=== PATIENT | male | born 1985 | race Caucasian/White ===

== ENCOUNTER 2017-11-08 16:32 | Emergency (ER) | payer BC ==
[2017-11-08 16:48] VITALS: TEMP 99.1; BMI 22.9
[2017-11-08] MEDS ORDERED: KETOROLAC TROMETHAMINE 30 MG/1 ML VIAL IVPUSH ONE (16:49)
[2017-11-08] MEDS ORDERED: SODIUM CHLORIDE 0.9% 1000 ML INFUS.BAG IV ONE (16:49)
[2017-11-08] MEDS ORDERED: KETOROLAC TROMETHAMINE 30 MG/1 ML VIAL ONE (16:56)
--- NOTE | 2017-11-08 16:56 | PDOC ---
History of Present Illness - General Chief Complaint: Pain Stated Complaint: PAIN Time Seen by Provider: 11/08/17 16:35 - History of Present Illness Initial Comments: 11/08/17 16:52 32 years old significant past medical history on Suboxone presents ED with sudden onset left flank left lower quadrant pain. Symptoms are moderate to severe sharp stabbing persistent constant patient cannot get comfortable associated with mild nausea No fever no chills no chest pain or shortness of breath Past History - Past Medical History Allergies/Adverse Reactions: Allergies Allergy/AdvReac Type Severity Reaction Status Date / Time Penicillins Allergy Verified 11/08/17 16:45 Sulfa (Sulfonamide Allergy Verified 11/08/17 16:45 Antibiotics) Home Medications: Ambulatory Orders No Home Medications 0 dose .ROUTE UTDICT 07/10/12 Anemia: No Asthma: No Cancer: No COPD: No - Surgical History Abdominal Surgery: No Appendectomy: No Cardiac Surgery: No - Suicide/Smoking/Psychosocial Hx Smoking Status: Yes Smoking History: Never smoked Have you smoked in the past 12 months: Yes Number of Cigarettes Smoked Daily: 20 Information on smoking cessation initiated: No 'Breaking Loose' booklet given: 09/08/15 Hx Alcohol Use: No Drug/Substance Use Hx: No Substance Use Type: None Review of Systems - Review of Systems Comments:: 11/08/17 16:52 ROS: A complete review of 10 out of 10 review of systems is taken and is negative apart from what is previously mentioned below and in the HPI. *Physical Exam - Vital Signs Last Vital Signs Temp Pulse Resp BP Pulse Ox 99.1 F 65 16 175/95 100 11/08/17 16:39 11/08/17 16:39 11/08/17 16:39 11/08/17 16:39 11/08/17 16:39 - Physical Exam Comments: 11/08/17 16:52 Vitals: Triage Vital signs reviewed General Appearance: moderate distress, well nourished well developed, Cardiac: Regular rate and rhythym, no murmurs, no rubs, no gallops, Lungs: Clear to auscultation bilateral, good air movement bilaterally, Abdomen: Soft, non distended, normal bowel sounds, left lower quadrant tenderness to palpation MSK: Left CVA TTP Genitourinary: No testicular TTP, no mass, no evidence of torsion Rectal: Exam deferred Extremities: Full range of motion to all extremities, no cyanosis, clubbing, or edema Skin: Warm and dry, no rashes or lesions, no rash, no petechiae Psych: normal mood, normal affect 11/08/17 16:56 ED Treatment Course - RADIOLOGY Radiology Studies Ordered: Category Date Time Status ABDOMEN & PELVIS CT W/O CONTR [CT] Stat CT Scan 11/08/17 16:49 Ordered Medical Decision Making - Medical Decision Making 11/08/17 16:54 32 y/o with sudden onset Flank and left lower quadrant pain History examination consistent with first episode of renal colic We'll treat with Toradol IV fluids CT observed and reassessed Dr. Stubbs to follow up patient. *DC/Admit/Observation/Transfer Diagnosis at time of Disposition: Flank pain - Discharge Dispostion Decision to Admit order: No - Referrals - Patient Instructions - Post Discharge Activity
[2017-11-08 17:07] LABS: BASO % 0.4 % (0-2.0); EOS % 1.4 % (0-4.5); HEMATOCRIT 45.5 % (35.4-49); HEMOGLOBIN 15.3 GM/dL (11.7-16.9); LYMPH % 22.2 % (8-40); MCH 29.7 pg (25.7-33.7); MCHC 33.6 g/dl (32.0-35.9); MEAN CELL VOLUME 88.3 fl (80-96); MEAN PLT VOLUME 8.3 fl (7.5-11.1); MONO % 8.8 % (3.8-10.2); NEUT % 67.2 % (42.8-82.8); PLATELET COUNT 238 K/MM3 (134-434); RBC 5.15 M/mm3 (4.00-5.60); RDW 13.7 % (11.9-15.9); WHITE BLOOD COUNT 8.9 K/mm3 (4.0-10.0)
[2017-11-08 17:39] LABS: ALBUMIN 4.6 g/dl (3.4-5.0); ANION GAP 9 MMOL/L (8-16); BILIRUBIN,TOTAL 1.2 mg/dL (0.2-1); BLOOD UREA NITROGEN 20 mg/dL (7-18); CALCIUM 9.3 mg/dL (8.5-10.1); CHLORIDE 103 mmol/L (98-107); CO2 29 mmol/L (21-32); CREATININE 1.1 mg/dL (0.55-1.3); GLUCOSE,RANDOM 115 mg/dL (74-106); POTASSIUM 4.8 mmol/L (3.5-5.1); SGOT/AST 23 U/L (15-37); SGPT/ALT 32 U/L (13-61); SODIUM 141 mmol/L (136-145); TOT PROT 7.7 g/dl (6.4-8.2)
[2017-11-08 17:40] LABS: ALK PHOS 90 U/L (45-117)
[2017-11-08] MEDS ORDERED: ACETAMINOPHEN 1000 MG/100 ML VIAL (NON FORMULARY) IVPB ONE (17:52)
[2017-11-08] MEDS ORDERED: ACETAMINOPHEN INJECTION 100 ML IVPB ONE (18:08)
[2017-11-08 19:02] LABS: URINE APPEARANCE SLCLOUDY; URINE BILIRUBIN NEGATIVE (<2.0 mg/dL); URINE COLOR YELLOW; URINE GLUCOSE (UA) NEGATIVE (NEGATIVE); URINE KETONE 1+ (NEGATIVE); URINE LEUK ESTERASE NEGATIVE (NEGATIVE); URINE NITRITE NEGATIVE (NEGATIVE); URINE PROTEIN NEGATIVE (NEGATIVE); URINE UROBILINOGEN NEGATIVE mg/dL (0.2-1.0)
[2017-11-08 19:05] LABS: EPI CELLS RARE /HPF (FEW); URINE MUCUS RARE
--- NOTE | 2017-11-08 19:17 | PDOC ---
*Physical Exam - Vital Signs Last Vital Signs Temp Pulse Resp BP Pulse Ox 99.1 F 65 16 175/95 100 11/08/17 16:39 11/08/17 16:39 11/08/17 16:39 11/08/17 16:39 11/08/17 16:39 ED Treatment Course - LABORATORY CBC & Chemistry Diagram: 11/08/17 17:03 11/08/17 17:03 - ADDITIONAL ORDERS Additional order review: Laboratory Results 11/08/17 11/08/17 18:36 17:03 Sodium 141 Potassium 4.8 Chloride 103 Carbon Dioxide 29 Anion Gap 9 BUN 20 H Creatinine 1.1 Creat Clearance w eGFR > 60 Random Glucose 115 H Calcium 9.3 Total Bilirubin 1.2 H AST 23 ALT 32 Alkaline Phosphatase 90 Total Protein 7.7 Albumin 4.6 Urine Color Yellow Urine Appearance Slcloudy Urine pH 7.0 Ur Specific [place] 1.018 Urine Protein Negative Urine Glucose (UA) Negative Urine Ketones 1+ H Urine Blood 2+ H Urine Nitrite Negative Urine Bilirubin Negative Urine Urobilinogen Negative Ur Leukocyte Esterase Negative 11/08/17 17:03 RBC 5.15 MCV 88.3 MCHC 33.6 RDW 13.7 D MPV 8.3 Neutrophils % 67.2 Lymphocytes % 22.2 Monocytes % 8.8 Eosinophils % 1.4 Basophils % 0.4 - Medications Given in the ED: ED Medications Discontinued Medications Generic Name Dose Route Start Last Admin Trade Name Freq PRN Reason Stop Dose Admin Acetaminophen 1,000 mg 11/08/17 17:52 11/08/17 18:13 Ofirmev Injection - IVPB 11/08/17 17:53 1,000 mg ONCE ONE Administration Ketorolac Tromethamine 30 mg 11/08/17 16:49 11/08/17 17:04 Toradol Injection - IVPUSH 11/08/17 16:50 30 mg ONCE ONE Administration Sodium Chloride 2,000 ml 11/08/17 16:49 11/08/17 17:05 Normal Saline - IV 11/08/17 16:50 2,000 ml ONCE ONE Administration Medical Decision Making - Medical Decision Making 11/08/17 19:11 32 yo male p/w flank pain -ct scan : there is left ureteral 2mm stone,there is no significant hydronephrosis and no hydrouter plan pt will follow up with Dr Garrisno *DC/Admit/Observation/Transfer Diagnosis at time of Disposition: Flank pain, Kidney stone on left side - Discharge Dispostion Disposition: HOME Condition at time of disposition: Stable - Prescriptions Prescriptions: Ciprofloxacin [Cipro (Restricted To Id)] 500 mg PO Q12H #10 tablet Ibuprofen [Motrin -] 600 mg PO TID PRN #30 tablet PRN Reason: Pain Or Fever Ondansetron [Zofran Odt -] 4 mg SL TID PRN #21 od.tablet PRN Reason: Nausea And/Or Vomiting - Referrals Referrals: Wero Escalona MD [Staff Physician] - Enoc King MD [Staff Physician] - - Patient Instructions Printed Discharge Instructions: DI for Kidney Stones Additional Instructions: please molded goods spot picker your medications at your pharmacy If you have any further symptoms,please follow up with the urologist - Post Discharge Activity
[2017-11-08 20:13] VITALS: BP 143/65; PULSE 63
== END 2017-11-08 20:14 | disposition home or self-care (01) ==
LOC: JER 16:32
PROC: 3E0337Z Introduction of Electrolytic and Water Balance Substance into Peripheral Vein, Percutaneous Approach (ICD-10-PCS; principal; 2017-11-08)
PROC: 3E033NZ Introduction of Analgesics, Hypnotics, Sedatives into Peripheral Vein, Percutaneous Approach (ICD-10-PCS; 2017-11-08)
PROC: 3E0333Z Introduction of Anti-inflammatory into Peripheral Vein, Percutaneous Approach (ICD-10-PCS; 2017-11-08)
DX: R10.32 Left lower quadrant pain (principal); Z87.891 Personal history of nicotine dependence
CPT/HCPCS: 36415; 74176-TC; 80053; 81003; 81015; 85025; 87086; 99284-25; J0131; J7030

== ENCOUNTER 2018-12-22 14:18 | Emergency (ER) | payer BC ==
--- NOTE | 2018-12-22 14:25 | PDOC ---
Rapid Medical Evaluation Time Seen by Provider: 12/22/18 14:20 Medical Evaluation: Allergies Allergy/AdvReac Type Severity Reaction Status Date / Time Penicillins Allergy Verified 11/08/17 16:45 Sulfa (Sulfonamide Allergy Verified 11/08/17 16:45 Antibiotics) 12/22/18 14:20 I have performed a brief in-person evaluation of this patient. The patient presents with a chief complaint of: lac to L hand from "jigsaw" Pertinent physical exam findings: lac to webspace between 1st and 2nd digit of left hand I have ordered the following:tdap The patient will proceed to the ED for further evaluation. 12/22/18 14:31 Discharge Disposition - Diagnosis Laceration - Referrals - Patient Instructions - Post Discharge Activity
[2018-12-22] MEDS ORDERED: DIPHTH,PERTUSS(ACELL),TET 0.5 ML DISP.SYRIN IM ONE ×2 (14:31→14:35)
[2018-12-22 14:35] VITALS: BP 154/101; PULSE 79; TEMP 99.3; BMI 25.1
--- NOTE | 2018-12-22 14:47 | PDOC ---
History of Present Illness - General Chief Complaint: Laceration Stated Complaint: INJURY Time Seen by Provider: 12/22/18 14:20 History Source: Patient Exam Limitations: No Limitations - History of Present Illness Initial Comments: 12/22/18 14:46 Chief complaint: Hand laceration Patient 33-year-old male who states he cut his left hand with a jigsaw. Patient is not up-to-date with tetanus GENERAL/CONSTITUTIONAL: No fever, weakness. dizziness HEAD, EYES, EARS, NOSE AND THROAT: No change in vision. No ear pain or discharge. No sore throat. CARDIOVASCULAR: No chest pain RESPIRATORY: No shortness of breath or cough GASTROINTESTINAL: No pain, nausea, vomiting, diarrhea or constipation GENITOURINARY: No dysuria MUSCULOSKELETAL: No neck or back pain SKIN: No rash, + laceration NEUROLOGIC: No headache, vertigo, loss of consciousness, or loss of sensation. GENERAL: The patient is awake, alert, and fully oriented, in no acute distress. HEAD: Normal with no signs of trauma. EYES: Pupils equal, round and reactive to light, sclera anicteric, conjunctiva clear. ENT: pharynx: no erythema, no exudate, uvula midline NECK: supple EXTREMITIES: Left hand with 2.5 cm laceration in the webspace, patient has full range of motion of the hand, there is no deformity, no foreign body visible, no signs of tendon injury or nerve injury. Neurovascular intact. Rest of extremities, normal range of motion, no edema. NEUROLOGICAL: Normal speech, normal gait. SKIN: Warm, Dry 12/22/18 15:58 Past History - Past Medical History Allergies/Adverse Reactions: Allergies Allergy/AdvReac Type Severity Reaction Status Date / Time Penicillins Allergy Verified 12/22/18 14:33 Sulfa (Sulfonamide Allergy Verified 12/22/18 14:33 Antibiotics) Home Medications: Ambulatory Orders No Home Medications 0 dose .ROUTE UTDICT 07/10/12 Ciprofloxacin [Cipro (Restricted To Id)] 500 mg PO Q12H #10 tablet 11/08/17 Ibuprofen [Motrin -] 600 mg PO TID PRN #30 tablet 11/08/17 Ondansetron [Zofran Odt -] 4 mg SL TID PRN #21 od.tablet 11/08/17 Anemia: No Asthma: No Cancer: No COPD: No Psychiatric Problems: Yes (depression) - Surgical History Abdominal Surgery: No Appendectomy: No Cardiac Surgery: No - Immunization History Immunization Up to Date: No - Psycho Social/Smoking Cessation Hx Smoking Status: Yes Smoking History: Current every day smoker Have you smoked in the past 12 months: No Number of Cigarettes Smoked Daily: 20 Information on smoking cessation initiated: No 'Breaking Loose' booklet given: 09/08/15 Hx Alcohol Use: No Drug/Substance Use Hx: No Substance Use Type: None *Physical Exam - Vital Signs Last Vital Signs Temp Pulse Resp BP Pulse Ox 99.3 F 79 18 154/101 H 98 12/22/18 14:31 12/22/18 14:31 12/22/18 14:31 12/22/18 14:31 12/22/18 14:31 Procedures - Laceration/Wound Repair Left Hand Wound Length: to 2.5 cm Wound Explored: clean Wound's Depth, Shape: superficial, linear, contused tissue Irrigated w/ Saline: Yes Betadine Prep: Yes Anesthesia: 2% Lidocaine Wound Repaired With: Sutures Suture Size/Type: 5:0 Number of Sutures: 8 Layer Closure: No Sterile Dressing Applied: Yes (bandaid) ED Treatment Course - RADIOLOGY Radiology Studies Ordered: Category Date Time Status HAND- LEFT [RAD] Stat Radiology 12/22/18 14:38 Ordered - Medications Given in the ED: ED Medications Discontinued Medications Generic Name Dose Route Start Last Admin Trade Name Freq PRN Reason Stop Dose Admin Diphtheria/Tetanus/Acell Pertussis 0.5 ml 12/22/18 14:31 12/22/18 14:36 Boostrix - IM 12/22/18 14:32 0.5 ml .ONCE ONE Administration Medical Decision Making - Medical Decision Making 12/22/18 14:47 33-year-old male who has laceration to the left hand, not involving tendons, getting x-ray to rule out foreign body and will need wound closure and tetanus update. Discussed issues, findings, results, applicable medications and treatments and follow-up. All these were understood and all questions were answered Discharge - Discharge Information Problems reviewed: Yes Clinical Impression/Diagnosis: Hand laceration Qualifiers: Encounter type: initial encounter Foreign body presence: without foreign body Laterality: left Qualified Code(s): S61.412A - Laceration without foreign body of left hand, initial encounter Condition: Stable Disposition: HOME - Admission No - Follow up/Referral Referrals: Mika Bragg MD [Primary Care Provider] - - Patient Discharge Instructions Patient Printed Discharge Instructions: DI for Laceration Repair Additional Instructions: Do not get wet for 2 days. Apply bacitracin several times a day. After this you can gently clean it with soap and water and apply bacitracin at least 2 times daily. Have reevaluated if redness, pus or getting worse. Have sutures evaluated for removal in 7-10 days - Post Discharge Activity
== END 2018-12-22 15:27 | disposition home or self-care (01) ==
LOC: JERFT 14:18
PROC: 3E0234Z Introduction of Serum, Toxoid and Vaccine into Muscle, Percutaneous Approach (ICD-10-PCS; principal; 2018-12-22)
PROC: 0JQK0ZZ Repair Left Hand Subcutaneous Tissue and Fascia, Open Approach (ICD-10-PCS; 2018-12-22)
DX: S61.412A Laceration without foreign body of left hand, initial encounter (principal); W29.8XXA Contact with other powered hand tools and household machinery, initial encounter; Y93.89 Activity, other specified; Y92.89 Other specified places as the place of occurrence of the external cause; Y99.8 Other external cause status; Z88.0 Allergy status to penicillin; Z88.2 Allergy status to sulfonamides; F17.210 Nicotine dependence, cigarettes, uncomplicated; Z86.59 Personal history of other mental and behavioral disorders
CPT/HCPCS: 73130-TC-LT-FY; 90715; 99281-25

== ENCOUNTER 2020-02-01 11:33 | Emergency (ER) | payer BC ==
[2020-02-01 11:41] VITALS: BP 154/82; PULSE 73; TEMP 98.6; BMI 24.3
[2020-02-01] MEDS ORDERED: ASPIRIN 81 MG CHEWABLE TABLETS PO ONE (11:53)
[2020-02-01] MEDS ORDERED: hydrOXYzine PAMOATE 25 MG CAPSULE (FP) PO ONE ×2 (12:38→12:54)
[2020-02-01 12:39] LABS: BASO % 0.4 % (0-2.0); EOS % 1.5 % (0-4.5); HEMATOCRIT 50.4 % (35.4-49); HEMOGLOBIN 16.7 GM/dL (11.7-16.9); LYMPH % 22.4 % (8-40); MCH 30.5 pg (25.7-33.7); MEAN CELL VOLUME 92.3 fl (80-96); MEAN PLT VOLUME 8.8 fl (7.5-11.1); MONO % 8.9 % (3.8-10.2); NEUT % 66.8 % (42.8-82.8); PLATELET COUNT 222 K/MM3 (134-434); RBC 5.46 M/mm3 (4.00-5.60); RDW 13.9 % (11.9-15.9); WHITE BLOOD COUNT 6.7 K/mm3 (4.0-10.0)
[2020-02-01 12:59] LABS: CHLORIDE 104 mmol/L (98-107); POTASSIUM 4.5 mmol/L (3.5-5.1); SODIUM 139 mmol/L (136-145)
[2020-02-01 13:02] LABS: ALBUMIN 4.2 g/dl (3.4-5.0); ANION GAP 5 MMOL/L (8-16); BLOOD UREA NITROGEN 19.7 mg/dL (7-18); CALCIUM 9.3 mg/dL (8.5-10.1); CO2 30 mmol/L (21-32); GLUCOSE,RANDOM 81 mg/dL (74-106); MAGNESIUM 2.2 mg/dL (1.8-2.4)
[2020-02-01 13:05] LABS: SGOT/AST 22 U/L (15-37); SGPT/ALT 20 U/L (13-61)
[2020-02-01 13:06] LABS: CREATININE 1.3 mg/dL (0.55-1.3)
[2020-02-01 13:07] LABS: BILIRUBIN,TOTAL 0.9 mg/dL (0.2-1); TOT PROT 7.3 g/dl (6.4-8.2)
[2020-02-01 13:09] LABS: ALK PHOS 76 U/L (45-117)
[2020-02-01] MEDS ORDERED: ACETAMINOPHEN 325 MG TABLET (FP) PO ONE (13:10)
[2020-02-01] MEDS ORDERED: ACETAMINOPHEN 325 MG TABLET (FP) ONE (13:29)
== END 2020-02-01 13:44 | disposition home or self-care (01) ==
LOC: JER 11:33
DX: F41.9 Anxiety disorder, unspecified (principal); R07.89 Other chest pain
CPT/HCPCS: 36415; 71046-TC-FY; 80053; 82550; 82553; 83735; 84484; 85025; 93005; 93010; 99284-25

== ENCOUNTER 2022-08-26 11:33 | Emergency (ER) | payer BC ==
[2022-08-26 11:44] VITALS: BP 151/99; PULSE 80; RESP 14; TEMP 99.3; BMI 23.6
== END 2022-08-26 12:57 | disposition home or self-care (01) ==
LOC: FER 11:33
DX: R22.41 Localized swelling, mass and lump, right lower limb (principal); M25.561 Pain in right knee
CPT/HCPCS: 73562-TC-RT-FY; 99283-25